=== PATIENT | female | born 2005 | race Caucasian/White ===

== ENCOUNTER 2024-10-17 15:25 | Outpatient (CLI) | payer OTHER, SELFPAY | END 2024-10-17 15:26 | disposition home or self-care (01) | LOC: NFLDREF 10-21 07:18 | PROVIDERS: Visit Provider Obstetrics & Gynecology | DX: Z11.3 Encounter for screening for infections with a predominantly sexual mode of transmission (principal) | CPT/HCPCS: 87491; 87591 ==

== ENCOUNTER 2024-12-07 19:21 | Emergency (ER) | payer BC, SELFPAY ==
--- OUTSIDE RECORDS SUMMARY | 2024-12-07 19:23 | XMS_ITS | Continuity of Care Document ---
Author Organization [facility] Address [address] [place] [address] [address] [place] [address] Phone Care Team Providers Care Pocket Setter Name Role Phone Maura Rogers PT Unavailable Unavailable Procedures Procedure Date Neuromuscular Re-Ed Therapeutic Exercise Manual Therapy Therapeutic Exercise Neuromuscular Re-Ed Manual Therapy Neuromuscular Re-Ed Manual Therapy Therapeutic Exercise Neuromuscular Re-Ed Manual Therapy Hot or Cold Pack Therapeutic Exercise Therapeutic Exercise PT Evaluation Low Complexity Neuromuscular Re-Ed Therapeutic Exercise Manual Therapy Therapeutic Exercise Manual Therapy Neuromuscular Re-Ed Therapeutic Exercise Manual Therapy Neuromuscular Re-Ed Therapeutic Exercise Manual Therapy Therapeutic Activities Neuromuscular Re-Ed Manual Therapy Neuromuscular Re-Ed Therapeutic Exercise Manual Therapy PT Evaluation Low Complexity Therapeutic Exercise Manual Therapy Advance Directives Directive Yes / No Effective Date File Name No Information Encounters Encounter Description Practice Location Reason(s) For Visit Diagnoses Date Provider Providers Copied on Encounter [facility], [address] [place] [address], [id number], tel:[phone] [facility] No Information Vollorna Kennedylena. . Referring Provider: Jarret Thakkar, [address] [place] [address], [id number]. tel:[phone], [address], [id number], tel:[phone] [facility] No Information Vollorna Kennedylena. . Referring Provider: Jarret Thakkar, [address] [place] [address], [id number]. tel:[phone], [address] [place] [address], [id number], tel:[phone] [facility] No Information Ken Reynoldsa. . Referring Provider: Jarret Thakkar, [address] [place] [address], [id number]. tel:[phone], [address], [id number], tel:[phone] [facility] No Information Shani Valdez. . Referring Provider: Jarret Thakkar, [address] [place] [address], [id number]. tel:[phone], [address], [id number], tel:[phone] [facility] No Information Shani Valdez. . Referring Provider: Jarret Thakkar, [address] [place] [address], [id number]. tel:[phone], [address] [place] [address], [id number], tel:[phone] [facility] No Information Shani Valdez. . Referring Provider: Jarret Thakkar, [address] [place] [address], [place], [address]. tel:[phone] [facility], [address] [place] [address], [id number], tel:[phone] [facility] No Information Ramo Enriquez. . Referring Provider: [employer], [address] [place], [place] [address], [id number], tel:[phone] [facility] No Information Ramo Enriquez. . Referring Provider: [facility], [address] [place] [address] [facility] [address] [place] [address], [id number], tel:[phone] [facility] No Information Madeleine Pham. . Referring Provider: [employer], [facility] [address], [id number], tel:[phone] [facility] No Information Shani Valdez. . Referring Provider: [employer], [address], [id number], tel:[phone] [facility] No Information Guido Rodriguez. . Referring Provider: [employer], [address], [id number], tel:[phone] [facility] No Information Shani Valdez. . Referring Provider: [employer], [facility] [address] [place] [address], [id number], tel:[phone] [facility] No Information Shani Valdez. . Referring Provider: [facility] [employer]. Family History Family Member Type Diagnosis Age At Onset No Information Payers Payer name Insurance type Covered republican ID Authoriza tirobert(s) [facility] [id number] Social History Type Description Quantity Date Captured Comments Sex Female Smoking Status No Information Chief Complaint And Reason For Visit No Information Reason For Referral Reason For Referral No Information History Of Present Illness Encounter Date Complaint History Of Prese nt Illness No Information Functional Status Date Functional Assessmen t No Information Instructions Date Instruction Additional Infor mation No Information Assessments Type Assessment Date No Information Patient Care Teams Name Effective Dates (start - stop) Status Members No Information
[2024-12-07 19:25] VITALS: BP 127/82; PULSE 92; RESP 22; TEMP 37; O2SAT 96; BMI 29.2
[2024-12-07] MEDS: OXYMETAZOLINE 0.05% NASAL SPRAY 1 SPRAY NOSTRIL-B (20:01)
--- OUTSIDE RECORDS SUMMARY | 2024-12-07 20:15 | XMS_ITS | Continuity of Care Document ---
Author Organization [facility] Address [address] [place] [address] [address] [place] [address] Phone Care Team Providers Care Senior Sous Chef Name Role Phone Maura Rogers PT Unavailable Unavailable Procedures Procedure Date Neuromuscular Re-Ed Manual Therapy Therapeutic Exercise Neuromuscular Re-Ed Therapeutic Exercise Manual Therapy Neuromuscular Re-Ed Therapeutic Exercise Manual Therapy Neuromuscular Re-Ed Therapeutic Exercise Hot or Cold Pack Manual Therapy Therapeutic Exercise PT Evaluation Low Complexity Neuromuscular Re-Ed Therapeutic Exercise Manual Therapy Therapeutic Exercise Manual Therapy Neuromuscular Re-Ed Therapeutic Exercise Manual Therapy Neuromuscular Re-Ed Therapeutic Exercise Manual Therapy Therapeutic Activities Neuromuscular Re-Ed Manual Therapy Neuromuscular Re-Ed Manual Therapy Therapeutic Exercise PT Evaluation Low Complexity Therapeutic Exercise Manual Therapy Advance Directives Directive Yes / No Effective Date File Name No Information Encounters Encounter Description Practice Location Reason(s) For Visit Diagnoses Date Provider Providers Copied on Encounter [facility], [address] [place] [address], [id number], tel:[phone] [facility] No Information Vollorna Kennedylena. . Referring Provider: Jarret Thakkar, [address] [place] [address], [id number]. tel:[phone], [address], [id number], tel:[phone] [facility] No Information Vollorna Kennedylena. . Referring Provider: Jarret Thakkar, [address] [place] [address], [id number]. tel:[phone], [address] [place] [address], [id number], tel:[phone] [facility] No Information Ken Reynoldsa. . Referring Provider: Jarret Thakkar, [address] [place] [address], [id number]. tel:[phone], [address], [id number], tel:[phone] [facility] No Information Shani Valdez. . Referring Provider: Jarret Thakkar, [address] [place] [address], [id number]. tel:[phone], [address], [id number], tel:[phone] [facility] No Information Shani Valdez. . Referring Provider: Jarret Thakkar, [address] [place] [address], [id number]. tel:[phone], [address] [place] [address], [id number], tel:[phone] [facility] No Information Shani Valdez. . Referring Provider: Jarret Thakkar, [address] [place] [address], [place], [address]. tel:[phone] [facility], [address] [place] [address], [id number], tel:[phone] [facility] No Information Ramo Enriquez. . Referring Provider: [facility], [address] [place], [place] [address], [id number], tel:[phone] [facility] No Information Ramo Enriquez. . Referring Provider: [facility]. [facility], [address] [place] [address] [employer] [address] [place] [address], [id number], tel:[phone] [facility] No Information Madeleine Pham. . Referring Provider: [facility], [facility] [address], [id number], tel:[phone] [facility] No Information Shani Valdez. . Referring Provider: [facility], [address], [id number], tel:[phone] [facility] No Information Guido Rodriguez. . Referring Provider: [facility], [address], [id number], tel:[phone] [facility] No Information Shani Valdez. . Referring Provider: [facility], [facility] [place] [employer] [address] [place] [address], [id number], tel:[phone] [facility] No Information Shani Valdez. . Referring Provider: [employer]. Family History Family Member Type Diagnosis Age At Onset No Information Payers Payer name Insurance type Covered alliance party ID Authoriza tirobert(s) [facility] [id number] Social History Type Description Quantity Date Captured [...]
--- NOTE | 2024-12-07 20:58 | ED_ITS ---
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 She reports that she did have an episode of epistaxis that lasted a while about 3 months ago in August and then resolved without having to come to the doctor. She has not really had other trouble with chronic nosebleeds, nasal polyps. She has no history of coagulopathy, bone marrow disorder, or thrombocytopenia. She has no recent nasal trauma. She does know that the dry air in the winter can be associated with nose bleed so she actually has a humidifier in her dorm room. She has not had any recent cold or sinus problems. No nasal picking. This afternoon she started having bleeding from her nose. He was having dark red liquid he blood from both nostrils, probably heavier on the left. It started this afternoon. She tried to control the bleeding by up holding direct pressure but it kept bleeding. She was holding pressure for about an hour or hour and half but still was oozing and bleeding into her Kleenex. She had a little bit of blood going down the back of her throat but tried to sit up and lean forward to keep of blood from going down her throat. Since the bleeding was not stopping this time, she came here to the ER. Related Data Home Medications ?Medication ?Instructions ?Recorded ?Confirmed cetirizine 10 mg tablet (Zyrtec) 10 mg PO QDAY PRN 09/22/24 10/17/24 escitalopram oxalate 5 mg tablet 15 mg PO QDAY 09/22/24 10/17/24 (Lexapro) Allergies Allergy/AdvReac Type Severity Reaction Status Date / Time No Known Drug Allergies Allergy Verified 10/17/24 14:48 [facility] Social History (Updated 09/23/24 @ 13:36 by Charmaine Stiles PA-C) Narrative: Student at [employer] Nonsmoker. No alcohol use Exam Narrative: Exam Narrative: Constitutional: Appears well-developed and well-nourished. Alert. Conversant. Polite. Non toxic. HENT: Head: Atraumatic. Nose: Externally normal. No signs of trauma. No bruising, deformity, or swelling. She is having active slow dark red epistaxis from both nostrils. No posterior bleeding. When I use otoscope I see blood in both nostrils. I had the patient apply pressure using her fingers for 10 minutes and rechecked. With this the bleeding was slowed down. She still have blood in both nostrils. I had her gently blow her nose and we did express some clots. Right nostril appear to be largely clear with a little bit of residual drying blood but no active bleeding. In left nostril there was a large clot that she could not express. Bleeding was stopped. We administered Afrin. I rechecked. Still no recurrent bleeding. She still has a fairly large clot adherent in her left nostril that obscures my view of most of her nasal septum and other nasal structures there. Fortunately the clot is providing hemostasis. However a precludes deeper view to discover the exact source of the epistaxis. We monitored the patient. Mouth/Throat: Oral mucosa is clear and moist. no trismus. Pharynx normal. Tonsils symmetric. No tonsillar enlargement, erythema, or exudate. Eyes: Conjunctivae normal. EOM normal. Pupils equal, round, and reactive to light. No scleral icterus. Neck: Normal range of motion. Neck supple. No tracheal deviation present. Cardiovascular: Normal rate, regular rhythm. No gallop. No friction rub. No murmur heard. Symmetric radial artery pulses Pulmonary/Chest: Effort normal. No stridor. No respiratory distress. No wheezes. No rales. No rhonchi . No tenderness. Musculoskeletal: RUE: Normal range of motion. No deformity LUE: Normal range of motion. No deformity RLE: Normal range of motion. No edema. No deformity LLE: Normal range of motion. No edema. No deformity Neurological: Alert and oriented to person, place, and time. Normal strength. CN II-VII intact. No sensory deficit. GCS eye subscore is 4. GCS verbal subscore is 5. GCS motor subscore is 6. Normal coordination Skin: Skin is warm and dry. No rash noted. No pallor. Normal capillary refill. Psychiatric: Normal mood. Mildly anxious. Very polite. Const: Vital Signs, click to edit/add: Vital Signs - 24 hr 12/07/24 19:25 Temperature 98.6 F Pulse Rate [Pulse Oximeter] 92 Respiratory Rate 22 Blood Pressure [Le ft Upper Arm] 127/82 Pulse Oximetry 96 Oxygen Delivery Me thod Room Air Course Vital Signs Vital signs: Initial Vital Signs Temperature 98.6 F 12/07/24 19:25 Temperature Source Temporal Artery Scan 12/07/24 19:25 Pulse Rate 92 12/07/24 19:25 Respiratory Rate 22 12/07/24 19:25 Blood Pressure 127/82 12/07/24 19:25 Blood Pressure Mean 97 12/07/24 19:25 Blood Pressure Position Sitting 12/07/24 19:25 Pulse Oximetry 96 12/07/24 19:25 Oxygen Delivery Method Room Air 12/07/24 19:25 Vital Signs Temperature 98.6 F 12/07/24 19:25 Pulse Rate 92 12/07/24 19:25 Respiratory Rate 22 12/07/24 19:25 Blood Pressure 127/82 12/07/24 19:25 Pulse Oximetry 96 12/07/24 19:25 Oxygen Delivery Method Room Air 12/07/24 19:25 Temperature 98.6 F 12/07/24 19:25 Pulse Rate 92 12/07/24 19:25 Respiratory Rate 22 12/07/24 19:25 Blood Pressure 127/82 12/07/24 19:25 Pulse Oximetry 96 12/07/24 19:25 Oxygen Delivery Method Room Air 12/07/24 19:25 Medications Administered Medications: Generic Name Dose Route Start Last Admin Trade Name Freq PRN Reason Stop Dose Admin Oxymetazoline HCl 1 spray 12/07/24 19:47 12/07/24 20:01 Oxymetazoline 0.05% Nasal [place] NOSTRIL-B 1 spray BID PRN Administration Medical Decision Making [facility] Narrative Medical decision making narrative: Pleasant 19-year-old college student presenting to the ER with epistaxis. She had dark red bleeding from both nostrils today. She was not able to control bleeding at home but bleeding did stop with direct pressure here in the ER. She was able to express the blood from her right nostril nurse not appear to be any active bleeding or here clots there so I suspect the bleeding has come from her left nostril. She does have an adherent clot in left nostril which obscures my field of view. We did observe the patient for about an hour after hemostasis was achieved she had no recurrent bleeding. She is breathing easily. She is comfortable discharging home. Discussed plan of care with the patient and with her boyfriend. We discussed nasal moisturizing, steps to take if she has recur rent bleeding, precautions for return. She would like and ENT evaluation, which I think is reasonable given her recurrent episodes of epistaxis. I gave her information to contact [facility] for an ER follow-up visit.. At this point she is hemodynamically stable, hemostasis has been achieved. I do not think she needs hemoglobin monitoring. She has no history of coagulopathy or thrombocytopenia. No other unusual bleeding or bruising therefore I do not think she needs CBC to at this point. If she has recurrent bleeding, would check labs including hemoglobin, platelets, coags. Discharge Plan Discharge Clinical Impression: Epistaxis Patient Disposition: Home, Self-Care Condition: Stable Instructions: Nosebleed (ED) Additional Instructions: As we discussed, to help prevent nosebleeds use your humidifier in your bedroom at night. You can also use nasal saline spray 2 times daily to help keep the mucous membranes in your nostrils moist. For urinary trouble with nose bleeds again tonight or in the next few days, remembered hold pressure for 10-15 minutes. If the bleeding does not stop after that, return to the ER for recheck Tomorrow, please call [facility], for an ER follow-up appointment. His clinic number is [phone] Prescriptions: No Action escitalopram oxalate [Lexapro] 5 mg tablet 15 mg PO QDAY cetirizine [Zyrtec] 10 mg tablet 10 mg PO QDAY PRN Follow Up/Referrals: Provider,Not a Local [Primary Care Provider] - Stand Alone Forms: [email or web address] Info Instructions
[2024-12-07 21:31] VITALS: BP 120/74; PULSE 87; RESP 22; TEMP 36.7; O2SAT 96
== END 2024-12-07 21:32 | disposition home or self-care (01) ==
PROVIDERS: Emergency Provider Emergency Medicine
DX: R04.0 Epistaxis (principal)
CPT/HCPCS: 99282; 99283

== ENCOUNTER 2025-08-26 07:28 | Emergency (ER) | payer BC, SELFPAY ==
[2025-08-26 07:40] VITALS: BP 129/83; PULSE 101; RESP 18; TEMP 37.1; O2SAT 97; BMI 27.8
--- NOTE | 2025-08-26 08:18 | ED.PSYCH ---
HPI - Psych General Date Seen: 08/26/25 Chief Complaint: Psychiatric Problem/Disorder Stated Complaint: mental health Time Seen by Provider: 08/26/25 08:01 Source: patient Mode of arrival: ambulatory Limitations: no limitations History of Present Illness HPI Narrative: PC is a [age]-year-old female presenting to emergency department for anxiety. She states for the past 36 hours she has been feeling very anxious and has been having difficulty sleeping. Has never had symptoms like this before. To feel like her heart is racing. She also feels nauseated and does not have much of an appetite. When she spoke to the triage nurse she initially thought this was due to issues with her long-term boyfriend developing occurred recently. When I spoke to her she states she now thinks it also may be related to not having her Lexapro for the past week. She ran out and has been taking extra pills that were from 3 years ago. She did speak to her psychiatrist in [place] who has center number prescription that she can think up [facility] today. She has no history of inpatient psychiatric treatment. Denies suicide ideation or homicide ideation at this time. Feels like this panic attack has been ongoing for this entire time was never got away. Has tried meditation inbox breathing at home without improvement. Has not taking any further anxiety medication other than her Lexapro. States her psychiatric history mostly for depression and denies being diagnosed with anxiety before. Related Data Home Medications ?Medication ?Instructions ?Recorded ?Confirmed cetirizine 10 mg tablet (Zyrtec) 10 mg PO QDAY PRN 09/22/24 10/17/24 escitalopram oxalate 5 mg tablet 15 mg PO QDAY 09/22/24 10/17/24 (Lexapro) Allergies Allergy/AdvReac Type Severity Reaction Status Date / Time No Known Drug Allergies Allergy Verified 10/17/24 14:48 Review of Systems Status of ROS: Reports: 10 or more systems reviewed and unremarkable except as noted in History and below [facility] Medical History No significant past medical history Surgical History No significant past surgical history Social History Narrative: Student at [employer] Nonsmoker. No alcohol use Smoking Status: Never smoker Second hand tobacco smoke exposure: No How often do you have a drink containing alcohol: never AUDIT-C Alcohol total score: 0 Non-prescribed substance use: denies use Exam Narrative: Exam Narrative: Const: Well-nourished, Well-developed, in mild distress Eyes: No conjunctival injection, and symmetrical lids HENT: Atraumatic external nose and ears. Moist mucous membranes. Neck: Symmetric, trachea midline, No thyromegaly. CVS: RRR, No murmurs or gallops. Peripheral pulses 2+ and equal in all extremities RESP: Unlabored respiratory effort. Clear to auscultation bilaterally. GI: Nontender/Nondistended, No rebound or guarding. MSK:Extremities w/o deformity, Normal Active ROM Skin: Warm, Dry. No rashes or lesions. Neuro: Normal Muscle tone, No focal neurological deficits. Psych: Awake, Alert, & Oriented x3. Appropriate mood and affect. Const: Vital Signs, click to edit/add: Vital Signs - 24 hr 08/26/25 07:40 Temperature 98.7 F Pulse Rate [Right Pulse Oximeter] 101 H Respiratory Rate 18 Blood Pressure [Ri ght Upper Arm] 129/83 Pulse Oximetry 97 Course Vital Signs Vital signs: Initial Vital Signs Temperature 98.7 F 08/26/25 07:40 Temperature Source Temporal Artery Scan 08/26/25 07:40 Pulse Rate 101 H 08/26/25 07:40 Respiratory Rate 18 08/26/25 07:40 Blood Pressure 129/83 08/26/25 07:40 Blood Pressure Mean 98 08/26/25 07:40 Blood Pressure Position Sitting 08/26/25 07:40 Pulse Oximetry 97 08/26/25 07:40 Vital Signs Temperature 98.7 F 08/26/25 07:40 Pulse Rate 101 H 08/26/25 07:40 Respiratory Rate 18 08/26/25 07:40 Blood Pressure 129/83 08/26/25 07:40 Pulse Oximetry 97 08/26/25 07:40 Temperature 98.7 F 08/26/25 07:40 Pulse Rate 101 H 08/26/25 07:40 Respiratory Rate 18 08/26/25 07:40 Blood Pressure 129/83 08/26/25 07:40 Pulse Oximetry 97 08/26/25 07:40 Medications Administered Medications: Discontinued Medications Generic Name Dose Route Start Last Admin Trade Name Adelfo PRN Reason Stop Dose Admin Lorazepam 0.5 mg 08/26/25 08:16 08/26/25 08:29 Lorazepam 0.5 Mg Tablet PO 08/26/25 08:17 0.5 mg ONCE ONE Administration MDM - Psych MDM Narrative Medical decision making narrative: Patient is a 20-year-old female presenting for mental health evaluation. Sounds like she is having quite a bit of anxiety right now. Is not having any suicidal or homicidal ideation. She does not it is appear to be a risk to herself or others. Physical exam was unremarkable. Will try giving her Ativan to help with her anxiety. She is feeling much better after the Ativan. She feels like she did finally falsely. Does feel safe for discharge. I do not believe there is any indication for inpatient treatment. 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 She will be discharged with hydroxyzine. She is agreeable to this plan. Discharge Plan Discharge Clinical Impression: Acute anxiety Patient Disposition: Home, Self-Care Condition: Improved Instructions: Anxiety (ED) Additional Instructions: Using hydroxyzine as needed for your anxiety. I do recommend talking to your psychiatrist about the anxiety. Return to emergency department for new or worsening symptoms. If you are still taking the Zyrtec recommend holding it as hydroxyzine also help with any allergies Prescriptions: No Action escitalopram oxalate [Lexapro] 5 mg tablet 15 mg PO QDAY cetirizine [Zyrtec] 10 mg tablet 10 mg PO QDAY PRN Follow Up/Referrals: Provider,Not a Local [Primary Care Provider, Family Practice] Stand Alone Forms: [email or web address] Info Instructions
== END 2025-08-26 09:59 | disposition home or self-care (01) ==
PROVIDERS: Emergency Provider Student in an Organized Health Care Education/Training Program
DX: F41.9 Anxiety disorder, unspecified (principal)
CPT/HCPCS: 99283; 99284; A9270